=== PATIENT | female | born 1975 | race Caucasian/White ===

== ENCOUNTER 2021-08-14 12:20 | Emergency (ER) | payer MEDICAID, OTHER ==
[~2021-08-14] VITALS: Ht 162.6 cm; Wt 40.8 kg
[~2021-08-14 12:20] MED LIST: ACYC1CAP23 PO; DARU800T3 PO; EMTRTAB7 PO; FLUO10CA15 PO; IBUP600T27 PO; PANT1INJ3 PO; RITO100T PO; SUMA100T15 PO; TRAM50TA2 PO
[2021-08-14] MEDS ORDERED: GLUCAGON HYDROCHLORIDE (RDNA) 1 MG VIAL IM ONE (12:30)
[2021-08-14] MEDS ORDERED: LORazepam 2MG/ML-1ML VIAL IM ONE (15:00)
[2021-08-14 15:01] VITALS: BP 120/84
== END 2021-08-14 16:20 | disposition home or self-care (01) ==
LOC: ER 12:20
DX: R13.10 Dysphagia, unspecified (principal); Z90.49 Acquired absence of other specified parts of digestive tract; Z88.6 Allergy status to analgesic agent
CPT/HCPCS: 70490; 96372; 99284; J1610